=== PATIENT | male | born 1965 | race Caucasian/White ===

== ENCOUNTER 2020-05-11 16:22 | Emergency (ER) | payer BC | END 2020-05-11 17:06 | disposition home or self-care (01) | LOC: JVIRT 16:22 | DX: Z03.818 Encounter for observation for suspected exposure to other biological agents ruled out (principal) | CPT/HCPCS: C9803; G2012-GT; U0003 ==

== ENCOUNTER 2023-05-10 04:25 | Day surgery (SDC) | payer BC ==
[2023-05-08 14:11] VITALS: BMI 24.3
[2023-05-10 10:04] VITALS: TEMP 98.2
[2023-05-10 10:36] VITALS: BP 124/65; PULSE 60; RESP 17
== END 2023-05-10 10:36 | disposition home or self-care (01) ==
LOC: JASU-ENDO 04:25
PROVIDERS: ATTEND Internal Medicine Gastroenterology
PROC: 0DBL8ZX Excision of Transverse Colon, Via Natural or Artificial Opening Endoscopic, Diagnostic (ICD-10-PCS; principal; 2023-05-10 09:45)
DX: Z12.11 Encounter for screening for malignant neoplasm of colon (principal); Z86.010 Personal history of colon polyps; K57.30 Diverticulosis of large intestine without perforation or abscess without bleeding; K64.8 Other hemorrhoids; D12.3 Benign neoplasm of transverse colon
CPT/HCPCS: 88305-TC